=== PATIENT | male | born 1970 | race African-American/Black ===

== ENCOUNTER 2017-05-23 08:03 | Observation (INO) | payer OTHER ==
[2017-05-23 08:09] VITALS: BMI 35.9
--- NOTE | 2017-05-23 08:21 | PDOC ---
History of Present Illness - General History Source: Patient, Old Records Exam Limitations: No Limitations <Merline Ferreira - Last Filed: 05/23/17 11:23> - History of Present Illness Initial Comments: 05/23/17 08:48 The patient is a 46 year old female, with no significant past medical history, who presents to the emergency department with dizziness, right facial numbness, nausea, vomiting, and feeling off balance this morning. He states he went drinking on night, had a hangover on Thursday, and reports waking up today feeling like the room was spinning. He states he was "swaying from side to side" when he walked. He reports a mild headache and numbness to the right side of his mouth. The patient reports developing nausea and reports a few episodes of nonbloody emesis today. He denies experiencing these symptoms in the past. He reports having an "echo" in the recent past which was negative for any acute findings. He denies chest pain, shortness of breath. He denies fever, chills, diarrhea and constipation. He denies dysuria, frequency, urgency and hematuria. Allergies: NKDA Social history: denies tobacco use, occasional alcohol consumption. <Claribel Motta - Last Filed: 05/23/17 16:09> - General Chief Complaint: Lightheaded Stated Complaint: DIZZINESS, NUMBNESS TO RT SIDE Time Seen by Provider: 05/23/17 08:20 Past History - Past Medical History Anemia: No Asthma: No Cancer: No Cardiac Disorders: No CVA: No COPD: No CHF: No Dementia: No Diabetes: No GI Disorders: No Disorders: No HTN: No Hypercholesterolemia: No Liver Disease: No Seizures: No Thyroid Disease: No - Surgical History Abdominal Surgery: No Appendectomy: No Cardiac Surgery: No Cholecystectomy: No Lung Surgery: No Neurologic Surgery: No Orthopedic Surgery: No - Psycho/Social/Smoking Cessation Hx Anxiety: No Suicidal Ideation: No Smoking History: Never smoked Have you smoked in the past 12 months: No Hx Alcohol Use: Yes (SOCIAL) Drug/Substance Use Hx: No Substance Use Type: None Hx Substance Use Treatment: No <Merline Ferreira - Last Filed: 05/23/17 11:23> <Claribel Motta - Last Filed: 05/23/17 16:09> - Past Medical History Allergies/Adverse Reactions: Allergies Allergy/AdvReac Type Severity Reaction Status Date / Time No Known Allergies Allergy Verified 05/23/17 08:09 Home Medications: Ambulatory Orders NK [No Known Home Medication] 11/28/14 Review of Systems - Review of Systems Able to Perform ROS?: Yes Comments:: 05/23/17 08:48 GENERAL/CONSTITUTIONAL: No fever or chills. No weakness. HEAD, EYES, EARS, NOSE AND THROAT: (+) right mouth numbness. No change in vision. No ear pain or discharge. No sore throat. CARDIOVASCULAR: No chest pain or shortness of breath. RESPIRATORY: No cough, wheezing, or hemoptysis. GASTROINTESTINAL: (+) nausea, vomiting, No diarrhea or constipation. GENITOURINARY: No dysuria, frequency, or change in urination. MUSCULOSKELETAL: No joint or muscle swelling or pain. No neck or back pain. SKIN: No rash NEUROLOGIC: (+) headache, vertigo, and unsteady gait. No loss of consciousness, or change in strength/sensation. ENDOCRINE: No increased thirst. No abnormal weight change. HEMATOLOGIC/LYMPHATIC: No anemia, easy bleeding, or history of blood clots. ALLERGIC/IMMUNOLOGIC: No hives or skin allergy. <Claribel Motta - Last Filed: 05/23/17 16:09> *Physical Exam - Vital Signs Last Vital Signs Temp Pulse Resp BP Pulse Ox 101 H 20 153/96 96 05/23/17 08:05 05/23/17 08:05 05/23/17 08:05 05/23/17 08:05 <Merline Ferreira - Last Filed: 05/23/17 11:23> - Vital Signs Last Vital Signs Temp Pulse Resp BP Pulse Ox 101 H 20 153/96 96 05/23/17 08:05 05/23/17 08:05 05/23/17 08:05 05/23/17 08:05 - Physical Exam Comments: 05/23/17 08:49 GENERAL: Awake, alert, and fully oriented, in no acute distress HEAD: No signs of trauma EYES: PERRLA, EOMI, sclera anicteric, conjunctiva clear ENT: Auricles normal inspection, hearing grossly normal, nares patent, oropharynx clear without exudates. Moist mucosa NECK: Normal ROM, supple, no lymphadenopathy, JVD, or masses LUNGS: Breath sounds equal, clear to auscultation bilaterally. No wheezes, and no crackles HEART: Regular rate and rhythm, normal S1 and S2, no murmurs, rubs or gallops ABDOMEN: Soft, nontender, normoactive bowel sounds. No guarding, no rebound. No masses EXTREMITIES: Normal range of motion, no edema. No clubbing or cyanosis. No cords, erythema, or tenderness NEUROLOGICAL: Cranial nerves II through XII grossly intact. Normal speech, normal gait SKIN: Warm, Dry, normal turgor, no rashes or lesions noted. <Claribel Motta - Last Filed: 05/23/17 16:09> Heart Score/ECG Review - ECG Intrepretation Comment:: 05/23/17 16:08 ECG was read by Dr. Ferreira at 08:53 Impression: Normal sinus rhythm. nonspecific T wave abnormalities. <Claribel Motta - Last Filed: 05/23/17 16:09> ED Treatment Course - LABORATORY CBC & Chemistry Diagram: 05/23/17 08:55 05/23/17 08:55 <Merline Ferreira - Last Filed: 05/23/17 11:23> - LABORATORY CBC & Chemistry Diagram: 05/23/17 08:55 05/23/17 08:55 - RADIOLOGY Radiograph Interpretation: 05/23/17 09:02 CXR was read by Dr. Collins at 8:58 Impression: No acute pathology. No comparison studies. 05/23/17 10:[address] was read by Dr. Funk at 10:11 Impression: No evidence of acute intracranial pathology <Claribel Motta - Last Filed: 05/23/17 16:09> Medical Decision Making - Medical Decision Making 05/23/17 08:44 46-year-old male with no significant past medical history presents to the emergency Department with complaints of dizziness and feeling off balance with headache and nausea since this morning. Differential diagnosis includes but is not limited to: Vertigo, intracranial process, dehydration, anemia, electrolyte abnormality, toxic/metabolic derangement, atypical presentation of ACS. Plan: 1. EKG 2. CT head 3. Labs 4. IV fluids for hydration 5. Antiemetics 6. Meclizine 7. Observe and reevaluate 05/23/17 11:24 Addendum: The labs were reviewed and are noted in the EMR. The CK is elevated at 700+ as well as a CK-MB fraction. EKG shows normal sinus rhythm at [address] segment findings in V1 through V3. CT head and chest x-ray are negative. I have reevaluated the patient at this time and he is feeling improved. In light of his nonspecific ST segment changes an elevated CK and CK- MB will admit to telemetry for serial cardiac markers and stress test. The patient has been given ASA 324mg PO. <Merline Ferreira - Last Filed: 05/23/17 11:23> - Medical Decision Making 05/23/17 12:38 The patients case was discussed with the covering physician for Dr. Cardoza ( [facility]) at this time. <Claribel Motta - Last Filed: 05/23/17 16:09> *DC/Admit/Observation/Transfer - Discharge Dispostion Admit: Yes - Attestations Physician Attestion: 05/23/17 08:45 I, Dr. Merline Ferreira, attest that the scribes documentation that appears above has been prepared under my direction and personally reviewed by me in its entirety. I confirmed that the note above accurately reflects all work, treatment, procedures, and medical decision-making performed by me. <Merline Ferreira - Last Filed: 05/23/17 11:23> - Attestations Scribe Attestion: 05/23/17 08:51 Documentation prepared by Claribel Motta, acting as durable medical equipment repairer for Merline Ferreira MD, <Claribel Motta - Last Filed: 05/23/17 16:09> Diagnosis at time of Disposition: Dizziness, Elevated CK - Discharge Dispostion Condition at time of disposition: Stable - Referrals
[2017-05-23] MEDS ORDERED: SODIUM CHLORIDE 1,000 ML IV STA ×3 (08:43→12:56)
[2017-05-23] MEDS ORDERED: ONDANSETRON 4 MG/2 ML VIAL IVPUSH ONE (08:43)
[2017-05-23] MEDS ORDERED: ONDANSETRON 4 MG/2 ML VIAL ONE (08:56)
[2017-05-23 09:06] LABS: BASOPHIL 0.2 % (0-2.0); EOSINOPHIL 0.7 % (0-4.5); MCH 25.9 pg (25.7-33.7); MCHC 32.9 g/dl (32.0-35.9); MEAN CELL VOLUME 78.6 fl (80-96); MEAN PLT VOLUME 7.4 fl (7.5-11.1); NEUTROPHILS 82.8 % (42.8-82.8); PLATELET COUNT 268 K/MM3 (134-434); RDW 13.8 % (11.9-15.9); WHITE BLOOD COUNT 11.5 K/mm3 (4.0-10.0)
[2017-05-23 09:27] LABS: ALK PHOS 113 U/L (45-117); TROPONIN I < 0.02 ng/ml (0.00-0.05)
[2017-05-23 09:42] LABS: ALBUMIN 3.5 g/dl (3.4-5.0); ANION GAP 10 (8-16); BILIRUBIN,TOTAL 0.4 mg/dL (0.2-1.0); CALCIUM 9.1 mg/dL (8.5-10.1); CO2 22 mmol/L (21-32); CREATININE 1.3 mg/dL (0.7-1.3); GLUCOSE,RANDOM 165 mg/dL (74-106); MAGNESIUM 2.1 mg/dL (1.8-2.4); PHOSPHOROUS 2.3 mg/dL (2.5-4.9); SGOT/AST 23 U/L (15-37); SGPT/ALT 35 U/L (12-78); TOT PROT 6.8 g/dl (6.4-8.2)
--- NOTE | 2017-05-23 11:18 | EKG ---
Test Reason : Blood Pressure : / mmHG Vent. Rate : 079 BPM Atrial Rate : 079 BPM P-R Int : 152 ms QRS Dur : 084 ms QT Int : 388 ms P-R-T Axes : 022 -01 028 degrees QTc Int : 444 ms NORMAL SINUS RHYTHM MARKED ST ABNORMALITY, POSSIBLE ANTEROLATERAL SUBENDOCARDIAL INJURY NONSPECIFIC T WAVE ABNORMALITY ABNORMAL ECG NO PREVIOUS ECGS AVAILABLE Confirmed by ADDIE SURESH, ELEN ([id number]) on 05/23/2017 11:18:18 AM Referred By: Confirmed By:ELEN REAL MD
[2017-05-23] MEDS ORDERED: ASPIRIN 81 MG CHEWABLE TABLETS PO ONE (11:23)
[2017-05-23] MEDS ORDERED: ASPIRIN 81 MG CHEWABLE TABLETS ONE (11:48)
--- NOTE | 2017-05-23 13:40 | HP ---
CHIEF COMPLAINT: dizziness since 7am PCP: Dr. Cardoza HISTORY OF PRESENT ILLNESS: 46 yr old man with no significant past medical history who presented to the ED with dizziness and weakness of sudden onset since 7am this morning. He felt fine when he woke up this morning at 6am, moving around his house from the bedroom to the kitchen without any difficulty when he suddenly felt dizzy like the room was spinning and he had to hold onto something to stay standing on his feet, he felt like he had "weak legs." a/w numbness on his right arm and neck, right side of face and "metallic/medicine" taste in his mouth. On night he drank alcohol, "was drunk," had a hangover (headache and nausea, and "ill feeling", without tremors) yesterday, but ate without difficulty. Last year he underwent (01/22/2016 Dr Shiva [facility]) angiogram and was told there was no abnormality - there was an abnormal EKG at that time, he had gone to the hospital for an episode of left sided chest pain at that time. 4-5 years ago he recalls going for a stress test for a "murmur." recently starting exercising few months ago, c/o mild intermittent right sided back pain that improves with rest. denies syncope, vomiting, diarrhea, constipation, abdominal pain, fevers, cough , sob, chest pain, loss of muscle tone. ER course was notable for: (1) elevated CK (2) EKG with t-wave abnormality Recent Travel: none PAST MEDICAL HISTORY: none, follows with PCP regularity, has full physical this year,recall that his cholesterol was normal, no other abnormal labs, on no medications PAST SURGICAL HISTORY: none Social History: Smoking: never Alcohol:socially Drugs: marijuana, 1-2x per year Family History: no early NE or ACS. paternal grandmotehr with diabetes Allergies No Known Allergies Allergy (Verified 05/23/17 08:09) HOME MEDICATIONS: Home Medications Medication Instructions Recorded NK [No Known Home Medication] 11/28/14 REVIEW OF SYSTEMS CONSTITUTIONAL: Present: generalized weakness Absent: fever, chills, diaphoresis, malaise, loss of appetite, weight change HEENT: Absent: rhinorrhea, nasal congestion, throat pain, throat swelling, difficulty swallowing, mouth swelling, ear pain, eye pain, visual changes CARDIOVASCULAR: Absent: chest pain, syncope, palpitations, irregular heart rate, lightheadedness , peripheral edema RESPIRATORY: Absent: cough, shortness of breath, dyspnea with exertion, orthopnea, wheezing, stridor, hemoptysis GASTROINTESTINAL: Absent: abdominal pain, abdominal distension, nausea, vomiting, diarrhea, constipation, melena, hematochezia GENITOURINARY: Absent: dysuria, frequency, urgency, hesitancy, hematuria, flank pain, genital pain MUSCULOSKELETAL: Absent: myalgia, arthralgia, joint swelling, back pain, neck pain SKIN: Absent: rash, itching, pallor HEMATOLOGIC/IMMUNOLOGIC: Absent: easy bleeding, easy bruising, lymphadenopathy, frequent infections NEUROLOGIC: Present:dizziness, Absent: headache, focal weakness or paresthesias, unsteady gait, seizure, mental status changes, bladder or bowel incontinence PSYCHIATRIC: Absent: anxiety, depression, suicidal or homicidal ideation, hallucinations. PHYSICAL EXAMINATION GENERAL: Awake, alert, and fully oriented, in no acute distress. HEAD: Normal with no signs of trauma. EYES: Pupils equal, round and reactive to light, extraocular movements intact, nonpathological horizontal nystagmus with lateral movements, sclera anicteric, conjunctiva clear. EARS, NOSE, THROAT: Ears normal, TM's without erythema/bulging, no sinus tenderness, oropharynx clear without exudates. Moist mucous membranes. [place] manuever negative NECK: Normal range of motion, supple without lymphadenopathy, JVD, or masses. LUNGS: Breath sounds equal, clear to auscultation bilaterally. No wheezes, and no crackles. No accessory muscle use. HEART: Regular rate and rhythm, normal S1 and S2 without murmur, rub or gallop. ABDOMEN: Soft, nontender, not distended, normoactive bowel sounds, no guarding, no rebound, no masses. MUSCULOSKELETAL: Normal range of motion at all joints. No bony deformities or tenderness. No CVA tenderness. UPPER EXTREMITIES: 2+ radial pulses, warm, well-perfused. No cyanosis. No clubbing. No peripheral edema. LOWER EXTREMITIES: 2+ dorsalis pedis pulses, warm, well-perfused. No calf tenderness. No peripheral edema. NEUROLOGICAL: Cranial nerves II-XII intact. Normal speech. Normal gait. 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 facial symmetry, sensation intact on face, arms and legs. PSYCHIATRIC: Cooperative. Good eye contact. Appropriate mood and affect. SKIN: Warm, dry, normal turgor, no rashes or lesions noted, normal capillary refill. Laboratory Tests 05/23/17 05/23/17 08:55 08:55 WBC 11.5 H Hgb 13.7 Hct 41.6 Plt Count 268 Sodium 139 Potassium 4.0 BUN 14 Creatinine 1.3 Random Glucose 165 H Calcium 9.1 Phosphorus 2.3 L Magnesium 2.1 Creatine Kinase 727 H Creatine Kinase Index 0.8 CK-MB (CK-2) 5.670 H Troponin I < 0.02 ASSESSMENT/PLAN: 46 yr old man with no significant pmhx, but previous cardiac work-up in the past presents with intractable dizziness for several hours placed in observation on Tele to r/o NE Vertigo suspicious for vasovagal from hypotension given recent ETOH use on - low suspicion for TIA/CVA - atypical presentation, head CT neg, no risk factors, low suspicion for benign positional vertigo given negative vani halpike - head CT was negative for acute pathology - hydrate with IVF ns @100/hr non-specific T-wave anormality with trop x1 negative, though heart score is 2, patient should be r/o for NE due to elevated CK-MB unable to reach Dr. Mock (hydraulic billet maker) or Dr. Shiva Han who did his angio for records today. low-suspicion since pt reports angio was negative last year. trend trops and repeat EKG in the AM PCP: dr. Cardoza DVT - low risk, short stay diet: regular Visit type - Emergency Visit Emergency Visit: Yes ED Registration Date: 05/23/17 Care time: The patient presented to the Emergency Department on the above date and was hospitalized for further evaluation of their emergent condition. - New Patient This patient is new to me today: Yes Date on this admission: 05/23/17 - Critical Care Critical Care patient: No
--- NOTE | 2017-05-23 14:37 | PN ---
Teaching Attending Note Name of Resident: Clover Cole ATTENDING PHYSICIAN STATEMENT I saw and evaluated the patient. I reviewed the resident's note and discussed the case with the resident. I agree with the resident's findings and plan as documented. SUBJECTIVE: CC: vertigo , N/V HPI : 46 y/o , h/o neg stress 5 yrs ago, and neg cath 1 yr ago per report, who presented with vertigo, this am . he had 6 drinks night , and felt a little tired yesterday. he woke up this am at 6 and shortly developed dizziness ( spinning ) and light headeness wwhich improved but did not resolve with sitting down. he developed n/V with no blood . vertigo lasted 1.5 hr until he was given IVF in ER. now has no sx . denied CP or SOB, had no weakness, but had tingling inhis hands and fingers during that episode. denied numbness in face or other parts of body. had metallic taste in mouth at that time . He feels nl now , with no complaints OBJECTIVE: NAD, MMM CV : RRR, no MRG Lungs: CTAB ABd: soft, NT, ND, nL BS . Ext; no edema Neuro: no facial droop, EOMI, round equal pupils, tongue at mid line, strength 5 /5 in upper and lower ext proximally and distally. sensation to light touch is NL. reflexes 2+ knee jerk and biceps b/l Neg Chasity halpike ASSESSMENT AND PLAN: 46 y/o h/o neg stress 5 yrs ago, and neg cath 1 yr ago per report, who presented with vertigo, N/V 1- vertigo: Unlikely BPV ( neg chasity halpike ) , Unlikely VAsovagal with prolonged duration , TIA and stroke are not suspected with nl neuro exam and no risk factors. could be due to excessive alcohol use the night before unlikely ACS in light of neg cath a year ago, but this needs to be r/o . Elevated CKmb of < 3% of the total , is not significant . unclear why total CK is elevated . pt might be volume depleted - IVF 100 cc/hr - tele - trop and repeat EKG ( initial one with L axis , sinus , TWI in septal leads ) . - unable to obtain records today possible dc tomorrow if neg w/u
[2017-05-23 14:54] LABS: URINE APPEARANCE CLEAR; URINE BILIRUBIN NEGATIVE (NEGATIVE); URINE BLOOD NEGATIVE (NEGATIVE); URINE COLOR LTYELLOW; URINE GLUCOSE (UA) NEGATIVE (NEGATIVE); URINE KETONE NEGATIVE (NEGATIVE); URINE LEUK ESTERASE NEGATIVE (NEGATIVE); URINE NITRITE NEGATIVE (NEGATIVE); URINE PROTEIN NEGATIVE (NEGATIVE); URINE UROBILINOGEN NEGATIVE E.U./dl (0.2-1.0)
[2017-05-23 15:54] LABS: TROPONIN I < 0.02 ng/ml (0.00-0.05)
[2017-05-23] MEDS: HEPARIN NA (PORCINE) 5,000 UNITS/ML 1ML VIAL SQ SCH (21:22)
[2017-05-23 22:10] LABS: TROPONIN I 0.1 ng/ml (0.00-0.05)
--- NOTE | 2017-05-23 23:49 | HOSP ---
Subjective - Review of Symptoms Events since last encounter: Pt with elevated trop of 0.1 Pt has no complaints at this time. Denies CP,SOB, nausea, chest pressure, abd pain, pain in arms, pain in jaw. He feels at baseline. Stat EKG ordered which shows no st segment changes and no changes compared to previous EKG. Will continue to trend troponin. Physical Examination Vital Signs: Vital Signs Temperature 99 F 05/23/17 18:00 Pulse Rate 71 05/23/17 18:00 Respiratory Rate 18 05/23/17 18:00 Blood Pressure 126/70 05/23/17 18:00 O2 Sat by Pulse Oximetry (%) 98 05/23/17 17:13 Visit type - Emergency Visit Emergency Visit: Yes ED Registration Date: 05/23/17 Care time: The patient presented to the Emergency Department on the above date and was hospitalized for further evaluation of their emergent condition. - New Patient This patient is new to me today: Yes Date on this admission: 05/23/17 - Critical Care Critical Care patient: No
[2017-05-24 02:57] VITALS: TEMP 98
[2017-05-24] MEDS: HEPARIN NA (PORCINE) 5,000 UNITS/ML 1ML VIAL SQ SCH (06:38)
[2017-05-24 07:51] LABS: BASOPHIL 0.2 % (0-2.0); EOSINOPHIL 1.6 % (0-4.5); MCH 25.8 pg (25.7-33.7); MCHC 32.9 g/dl (32.0-35.9); MEAN CELL VOLUME 78.6 fl (80-96); MEAN PLT VOLUME 7.9 fl (7.5-11.1); NEUTROPHILS 75.4 % (42.8-82.8); PLATELET COUNT 268 K/MM3 (134-434); RDW 13.9 % (11.9-15.9); WHITE BLOOD COUNT 13.3 K/mm3 (4.0-10.0)
[2017-05-24 08:11] LABS: ANION GAP 8 (8-16); CALCIUM 8.6 mg/dL (8.5-10.1); CO2 25 mmol/L (21-32); CREATININE 1.1 mg/dL (0.7-1.3); GLUCOSE,RANDOM 103 mg/dL (74-106)
[2017-05-24] MEDS ORDERED: SODIUM CHLORIDE 1,000 ML IV SCH (10:00)
[2017-05-24 10:05] VITALS: BP 132/80; PULSE 80
--- NOTE | 2017-05-24 15:19 | DS ---
Physical Examination Vital Signs: Vital Signs Temperature 98 F 05/24/17 10:00 Pulse Rate 80 05/24/17 10:00 Respiratory Rate 18 05/24/17 10:00 Blood Pressure 132/80 05/24/17 10:00 O2 Sat by Pulse Oximetry (%) 98 05/24/17 10:00 Findings/Remarks: seen this am , denies vertigo, cp or SOB OBJECTIVE: NAD, MMM CV : RRR, no MRG Lungs: CTAB ABd: soft, NT, ND, nL BS . Ext; no edema Neuro: no facial droop, EOMI, round equal pupils, tongue at mid line, strength 5 /5 in upper and lower ext proximally and distally. sensation to light touch is NL. reflexes 2+ knee jerk and biceps b/l Neg Marcellus halpike Constitutional: Yes: Well Nourished, No Distress Labs: CBC, BMP 05/24/17 05:35 05/24/17 05:35 Discharge Summary Reason For Visit: DIZZINESS, ELEVATED CREATINE KINASE LEVEL Hospital Course: Dc Diagnosis : 1- vertigo : unclear etiology. ACS , TIA , or vasovagal component . work not completed HOspital course : 46 y/o , h/o neg stress 5 yrs ago, and neg cath 1 yr ago per report, who presented with vertigo.sx lasted for 2 hours with numbness in hands. on admission , EKG had TWI in septal TWI, RBBB, and L axis . tele was ordered . initial trop was nl , 2nd , and 3rd 0.1. with no cp . the significance of this was not clear nad his sx were though to be due ot either ACS , or transient hypotension associate with vasovagal event and mild elevation in trop, or due to TIA. of note he had alcohol use 2 days prior. he was given IVF plan was to get MRI of brain and echo with continued cardiac monitoring but he left AMA despite explaining the risks of worsening condition and stroke. dispo : home AMA was advised to follow with PMD and Card Condition: Stable - Instructions Referrals: Oscar Cardoza [Primary Care Provider] - Disposition: AGAINST MEDICAL ADVICE - Home Medications Comprehensive Discharge Medication List: Ambulatory Orders NK [No Known Home Medication] 11/28/14 This patient is new to me today: No Emergency Visit: Yes ED Registration Date: 05/23/17 Care time: The patient presented to the Emergency Department on the above date and was hospitalized for further evaluation of their emergent condition. Critical Care patient: No - Discharge Referral Referred to [facility] No
--- NOTE | 2017-05-24 17:23 | EKG ---
Test Reason : Blood Pressure : / mmHG Vent. Rate : 081 BPM Atrial Rate : 081 BPM P-R Int : 138 ms QRS Dur : 088 ms QT Int : 372 ms P-R-T Axes : 010 -34 031 degrees QTc Int : 432 ms NORMAL SINUS RHYTHM LEFT AXIS DEVIATION NONSPECIFIC T WAVE ABNORMALITY ABNORMAL ECG WHEN COMPARED WITH ECG OF 23-MAY-2017 23:15, NO SIGNIFICANT CHANGE WAS FOUND Confirmed by ADDIE SURESH, ELEN ([id number]) on 05/24/2017 5:23:38 PM Referred By: Clarisa GALLO Confirmed By:ELEN REAL MD
--- NOTE | 2017-05-24 17:24 | EKG ---
Test Reason : Blood Pressure : / mmHG Vent. Rate : 085 BPM Atrial Rate : 085 BPM P-R Int : 146 ms QRS Dur : 084 ms QT Int : 368 ms P-R-T Axes : 027 -33 018 degrees QTc Int : 437 ms NORMAL SINUS RHYTHM LEFT AXIS DEVIATION ABNORMAL ECG WHEN COMPARED WITH ECG OF 23-MAY-2017 08:53, QRS AXIS SHIFTED LEFT Confirmed by ELEN REAL MD ([id number]) on 05/24/2017 5:24:24 PM Referred By: Confirmed By:ELEN REAL MD
== END 2017-05-24 11:58 | disposition left against medical advice (07) ==
LOC: JER 08:03 → JERBED 12:08 → UNDOADMOB 12:08 → INTOOBSV 12:08 → JERBED 12:56 → J4W 15:49
PROVIDERS: ADMIT Family Medicine; ATTEND Internal Medicine
PROC: 3E033GC Introduction of Other Therapeutic Substance into Peripheral Vein, Percutaneous Approach (ICD-10-PCS; principal; 2017-05-23)
PROC: 3E0337Z Introduction of Electrolytic and Water Balance Substance into Peripheral Vein, Percutaneous Approach (ICD-10-PCS; 2017-05-23)
PROC: 3E013GC Introduction of Other Therapeutic Substance into Subcutaneous Tissue, Percutaneous Approach (ICD-10-PCS; 2017-05-23)
DX: R42 Dizziness and giddiness (principal); R74.8 Abnormal levels of other serum enzymes
CPT/HCPCS: 36415; 70450-TC; 71010-TC; 80048; 80053; 81003; 82550; 82553; 83690; 83735; 84100; 84484; 85025; 93005; 93010; 99285-25; G0378; J1644